=== PATIENT | male | born 1985 | race African-American/Black ===

== ENCOUNTER 2018-05-27 07:59 | Emergency (ER) | payer OTHER ==
[~2018-05-27] VITALS: Ht 175.3 cm; Wt 65.9 kg
[2018-05-27 11:10] VITALS: BP 130/70
== END 2018-05-27 11:13 | disposition home or self-care (01) ==
LOC: M ED 07:59 → EDBD 07:59 → M ED 11:13
DX: T33.821A Superficial frostbite of right foot, initial encounter (principal); T33.822A Superficial frostbite of left foot, initial encounter; X31.XXXA Exposure to excessive natural cold, initial encounter